=== PATIENT | male | born 1970 | race Caucasian/White ===

== ENCOUNTER 2021-05-01 09:11 | Emergency (ER) | payer OTHER ==
[~2021-05-01] VITALS: Ht 182.9 cm; Wt 77.1 kg
[2021-05-01 09:14] VITALS: BP 160/91
[2021-05-01] MEDS ORDERED: BACTRIM DS TAB1 EACH PO (09:56)
== END 2021-05-01 10:15 | disposition home or self-care (01) ==
LOC: ER 09:11
DX: L03.012 Cellulitis of left finger (principal)